=== PATIENT | female | born 1960 | race Caucasian/White ===

== ENCOUNTER 2020-05-09 11:51 | Emergency (ER) | payer OTHER ==
--- OUTSIDE RECORDS SUMMARY | 2020-05-09 11:54 | XMS REPORT | Continuity of Care Document ---
:1960 Author Organization [facility] t Address [address] [place] [address] Care Team Providers Name Role Phone Luis Aguirre Attending Clinician Payers Payer Name Policy Type Policy Number Effective Date Expiration Date S ource Problems This patient has no known problems. Allergies, Adverse Reactions, Alerts Allergy Allergy Status Severity Reaction(s) Onset Inactive Treating Comm ents Source Name Type Date Date Clinician No Known DA Active U 2019-03 [facility] 03-06 [place] [facility] No Known DA Active U [facility] Drug 07-28 [place] [facility] Medications This patient has no known medications. Procedures This patient has no known procedures. Encounters Start End Encounter Admission Attending Care Care Encounter Source Date/Time Date/Time Type Type Clinicians Facility Department ID 2019-11-17 2019-11-17 Telephone MACKENZIE Herndon [phone] [id number] 00:00:00 00:00:00 [facility] [id number] Surgical [id number] [facility] [phone] es [address] Results Test Description Test Time Test Comments Results Result Comments Source GLUBED 2020-01-07 08:47:00 Test Item Value Reference Range Interpretation Comme nts GLUMADDIE (test code = GLUMADDIE) 82 mg/dL 60-125 N - XR FLUORO FOR SPINE [id number] 19:38:00 [facility] 1960 Sex: F Patient Name: MAVERICK ARCE Unit No: [id number] EXAMS: CPT CODE: [id number] XR FLUORO FOR SPINE INJ 44098 THORACIC EPIRADICULAR INJECTION REFERRAL PHYSICIAN: None PREOPERATIVE DIAGNOSIS: Thoracic Radiculitis POSTOPERATIVE DIAGNOSIS: Possible left T9 and T12 radiculitis PROCEDURES PERFORMED: Fluoroscopically guided needle localization of the bilateral T9 and bilateral T12 spinal nerves with transforaminal epidurograms and epidural steroid injection of local anesthetic and steroid. FINDINGS: Flow was obtained through all foramen without obstruction. Mild facet hypertrophy was noted at both levels on MRI. Provocation with injection was negative. Anesthetic response was indeterminate as patient limited pain at time of procedure. Preinjection VAS 0/10. Postinjection VAS 0/10. Steroid response pending follow-up. ESTIMATED BLOOD LOSS: Minimal ANESTHESIA: TIVA COMPLICATIONS: None DETAILS OF PROCEDURE: After obtaining stable vital signs, informed consent and IV access, with nocontraindications, the patient was taken to the operating room and placed in prone position with all extremities padded and appropriate monitors placed. The patient was sterilely prepped and draped over the thoracic spine. Using fluoroscopic guidance the insertion sites were mar ked for paravertebral approaches and using standard technique, a 27 gauge needle was advanced toward each corresponding pedicle base without paresthesias. Isovue-300 contrast 0.5 ml was injected incrementally with digital subtraction to produce each epidurogram. There were no signs of intravascular or intrathecal uptake. Lidocaine 4% 0.5 ml was injected as a test dose ateach site and again there were no signs of intravascular or intrathecal uptake. Lidocaine 4% 0.5 ml with Decadron 8 mg was then injected incrementally with frequent negative aspirations at each site. Again, there were no signs of intravascular or intrathecal uptake. The needles were removed and the patient was taken to the PACU in good condition at 1938 Reported and signed by: Graeme Guillermo M.D. CC: Graeme Guillermo MD Technologist: MICHELLE MANRIQUEZ RT(R) Transcribed D/ (1937) Eduardo.[facility] [place] [facility] NAME: MAVERICK ARCE [address] [facility] PHYS: Graeme Botello MD [place], [place] [address] : 1960 AGE: 59 SEX: F LOC: ANNE PHONE #: [phone] EXAM DATE: 01/06/2020 STATUS: REG [facility] FAX #: [phone] RAD #: D/C DT PAGE 1 Signed Report PatientName: MAVERICK ARCE Unit No: [id number] EXAMS: CPT CODE: [id number] XR FLUORO FOR SPINE INJ 98100 <Continued> Orig Print D/T: S: 01/06/2020 (1941) [facility] NAME: MAVERICK LOVETT [address] [facility] PHYS: Graeme Botello MD [place], [place] [address] : 1960 AGE: 59 SEX: F LOC: JagdihsHELENA PHONE #: [phone] EXAM DATE: 01/06/2020 STATUS: REG [facility] FAX #: [phone] RAD #: D/C DT PAGE 2 Signed [id number] 11:29:00 Test Item Value Reference Range Interpretation Comments GLUBED (test code = GLUBED) 92 mg/dL 60-125 N - MRI T-SPINE W/O [id number] 12:14:00 Patient Name: MAVERICK ARCE Unit No: [id number] EXAMS: CPT CODE: [id number] MRI T-SPINE W/O CONT 93496 DIAGNOSIS: 1. At T1-2 there is no evidence for disc bulge or herniation, bony canal or foraminal stenosis. 2. At T2-3 there is no evidence for disc bulge or herniation, bony canal or foraminal stenosis. 3. At T3-4 there is no evidence for discbulge or herniation, bony canal or foraminal stenosis. 4. At T4-5 there is no evidence f or disc bulge or herniation, bony canal or foraminal stenosis. 5. At T5-6 there is no evidence for disc bulge or herniation, bony canal or foraminal stenosis. 6. At T6-7 thereis no evidence for disc bulge or herniation, bony canal or foraminal stenosis. 7. At T7-8 there is no evidence for disc bulge or herniation, bony canal or foraminal stenosis. 8. At T8-9 there is no evidence for disc bulge or herniation, bony canal or foraminal stenosis. 9. At T9-10 there is no evidence for disc bulge or herniation, bony canal or foraminal stenosis. There is asymmetric left facet degeneration. 10. At T10-11 there is no evidence for disc bulge or herniation. No foraminal narrowing is present with mild narrowing of the central canal. 11. At T11-12 there is no evidence for disc bulge or herniation. No foraminal. There is facet degeneration and slight narrowing of the central canal. 12.At T12-L1 there is no evidence for disc bulge or herniation, bony canal or foraminal stenosis. COMMENT: COMPARISON: No prior exams available. Scans were performed in the sagittal and axial planes utilizing T1, T2 and inversion recovery images. 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 The discs are desiccated. The cord appears normal in size and signal and the conus is in the expected location. at 1214 Reported and signed by:Aftab Rodriguez MD CC: Jackson Noble MD Technologist: FLOWER WALSH RT(R) Transcribed D/ (1214) Krissy [facility] NAME: MAVERICK ARCE [address] [facility] PHYS: Jackson Painter MD : 1960 AGE: 59 SEX: F [place] [address] LOC: Y.MRI PHONE #: [phone] EXAM DATE: 12/06/2019 STATUS: DEP CLI FAX #: [phone] RAD #: D/C DT PAGE 1 Signed Report Patient Name: MAVERICK ARCE Unit No: [id number] EXAMS: CPT CODE: [id number] MRI T-SPINE W/O CONT 09562 <Continued> Orig Print D/T: S: 12/07/2019 (2607) [facility] NAME: MAVERICK ARCE [address] [facility] PHYS: Jackson Painter MD : 1960 AGE: 59 SEX: F [place] [address] LOC: Y.MRI PHONE #: [phone] EXAM DATE: 12/06/2019 STATUS: DEP CLI FAX #: [phone] RAD #: D/C DT PAGE 2 Signed Report- XR T-SPINE 2 [id number] 08:28:00 Patient Name: MAVERICK ARCE Unit No: [id number] EXAMS: CPT CODE: [id number] XR T- SPINE 2 VIEWS 51873 Thoracic spine 2 views COMMENT: Vertebral body heightsare maintained. There is diffuse interspace narrowing and endplate degenerative change with kyphosis. at 0828 Reported and signed by: Aftab Rodriguez MD CC: Jackson Noble MD Technologist: RT Aston.(R) Transcribed D/ (0828) [facility] NAME: MAVERICK LOVETT [address] [facility] PHYS: Jackson Painter MD : 1960 AGE: 59 SEX: F [place] [address] LOC: Y.MRI PHONE #: [phone] EXAM DATE: 12/06/2019 STATUS: OLY CLI FAX #: [phone] RAD #: D/C DT PAGE 1 Signed Report Patient Name: MAVERICK LOVETT Unit No: [id number] EXAMS: CPT CODE: [id number] XR T-SPINE 2 VIEWS 62355 <Continued> Orig Print D/T: S: 12/07/2019 (0832) [facility] NAME: MAVERICK ARCE [address] [facility] PHYS: Jackson Painter MD : 1960 AGE: 59 SEX: F [place] [address] LOC: Y.MRI PHONE #:[phone] EXAM DATE: 12/06/2019 STATUS: O[facility] CLI FAX #: [phone] RAD #: D/C DT PAGE 2 Signed Report
[2020-05-09] MEDS ORDERED: ONDANSETRON 4 MG (ODT) TAB ONE (12:18)
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
[2020-05-09 14:50] VITALS: TEMP 97.8
[2020-05-09 14:51] VITALS: BP 113/65; O2SAT 97
== END 2020-05-09 14:08 | disposition home or self-care (01) ==
LOC: ER 11:51
DX: S16.1XXA Strain of muscle, fascia and tendon at neck level, initial encounter (principal); V43.53XA Car driver injured in collision with pick-up truck in traffic accident, initial encounter
CPT/HCPCS: 70450; 72125; 72128; 72131; 99284